=== PATIENT | female | born 1960 | race Caucasian/White ===

== ENCOUNTER 2019-10-02 10:51 | Day surgery (SDC) | payer OTHER ==
[~2019-10-02] VITALS: Ht 167.6 cm; Wt 110.1 kg
[~2019-10-02 10:51] MED LIST: 5-Htp50 MG PO; ASPI81CH PO; CYCL10 PO; FENO160 PO; HYDCHL25 PO; MELA3 PO; OMEGA RED PO; PRAM.125 PO; TRAM50 PO; TRAZ100 PO; VITAMIN D32000 UNIT PO
== END 2019-10-02 15:16 | disposition home or self-care (01) ==
LOC: ORSCSDS 10:51
PROVIDERS: Podiatrist
PROC: 01BG0ZZ Excision of Tibial Nerve, Open Approach (ICD-10-PCS; principal; 2019-10-02 12:30)
PROC: 0QSN04Z Reposition Right Metatarsal with Internal Fixation Device, Open Approach (ICD-10-PCS; principal; 2019-10-02 12:30)
DX: G57.61 Lesion of plantar nerve, right lower limb (principal); M79.671 Pain in right foot; M89.8X7 Other specified disorders of bone, ankle and foot; I10 Essential (primary) hypertension; E66.01 Morbid (severe) obesity due to excess calories; Z68.39 Body mass index [BMI] 39.0-39.9, adult; Z79.899 Other long term (current) drug therapy; Z79.82 Long term (current) use of aspirin
CPT/HCPCS: 88304; C1713; J0690; J2250; J2704; J7120

== ENCOUNTER → 2020-12-06 | Outpatient (CLI) | payer OTHER | LOC: LAB SHORT 13:07 → PLD 13:07 | DX: R93.89 Abnormal findings on diagnostic imaging of other specified body structures (principal); D26.0 Other benign neoplasm of cervix uteri | CPT/HCPCS: 88305 ==

== ENCOUNTER 2021-01-17 09:54 | Day surgery (SDC) | payer OTHER ==
[~2021-01-17] VITALS: Ht 165.1 cm; Wt 112.8 kg
[~2021-01-17 09:54] MED LIST changes: +MELATONIN5 M1 PO
[2021-01-17] MEDS ORDERED: PRAM.125 PO (10:36)
[2021-01-17] MEDS ORDERED: HYDROCHLOROTHIA25 MG PO (10:37)
--- NOTE | 2021-01-17 12:02 | NUR ---
01/17/21 1202 Maria Teresa Spivey NO ANTIBIOTICS ORDERED
--- NOTE | 2021-01-17 13:29 | NUR ---
PT ALERT AND ORIENTED p PROCEDURE. MILD ABD CRAMPING, DECREASED c POSITION CHANGE. GIVEN PO FLUIDS AND SNACKS, DENIES NAUSEA. GIVEN DC INSTRUCTIONS. NO QUESTIONS. VERBALIZES AN UNDERSTANDING. SMALL AMOUNT OF BLOOD ON LEOLA PAD, GIVEN NEW ONE PER REQUEST. IV DC'D, CATH INTACT AND PRESSURE DRESSING APPLIED. OTD IN NAD VIA WC, AWAITING PT, PAPERWORK SIGNED.
== END 2021-01-17 23:00 | disposition home or self-care (01) ==
LOC: ORSCMMR 09:54 → ORD 12:00 → ORSCMMR 12:00
PROVIDERS: Obstetrics & Gynecology
PROC: 0UB98ZX Excision of Uterus, Via Natural or Artificial Opening Endoscopic, Diagnostic (ICD-10-PCS; principal; 2021-01-17 12:00)
PROC: 0UDB8ZX Extraction of Endometrium, Via Natural or Artificial Opening Endoscopic, Diagnostic (ICD-10-PCS; principal; 2021-01-17 12:00)
DX: N95.0 Postmenopausal bleeding (principal); N85.00 Endometrial hyperplasia, unspecified; C54.1 Malignant neoplasm of endometrium; K21.9 Gastro-esophageal reflux disease without esophagitis; E66.01 Morbid (severe) obesity due to excess calories; Z68.41 Body mass index [BMI] 40.0-44.9, adult; Z79.899 Other long term (current) drug therapy; Z87.891 Personal history of nicotine dependence
CPT/HCPCS: 88305; J1100; J1885; J2250; J2370; J2405; J2704; J3010

== ENCOUNTER 2022-05-25 13:34 | Day surgery (SDC) | payer OTHER ==
[~2022-05-25] VITALS: Ht 165.1 cm; Wt 99.8 kg
[~2022-05-25 13:34] MED LIST changes: +DULOXETINE HCL30 MG PO; +HYDROCHLOROTHIA25 MG PO
== END 2022-05-25 16:05 | disposition home or self-care (01) ==
LOC: ORSCSDS 13:34
PROVIDERS: Surgery
PROC: 0DBL8ZX Excision of Transverse Colon, Via Natural or Artificial Opening Endoscopic, Diagnostic (ICD-10-PCS; principal; 2022-05-25 14:45)
DX: R19.4 Change in bowel habit (principal); Z86.010 Personal history of colon polyps; D12.3 Benign neoplasm of transverse colon; J45.909 Unspecified asthma, uncomplicated; F32.A Depression, unspecified; G47.33 Obstructive sleep apnea (adult) (pediatric); E66.01 Morbid (severe) obesity due to excess calories; Z68.36 Body mass index [BMI] 36.0-36.9, adult; I10 Essential (primary) hypertension; F17.210 Nicotine dependence, cigarettes, uncomplicated; Z79.899 Other long term (current) drug therapy
CPT/HCPCS: 88305; J0330; J0461; J2405; J2704; J7120

== ENCOUNTER 2025-06-05 07:49 | Day surgery (SDC) | payer MEDICARE ==
[~2025-06-05] VITALS: Ht 167.6 cm; Wt 98.6 kg
[2025-06-05 11:15] VITALS: BP 125/65
== END 2025-06-05 11:09 | disposition home or self-care (01) ==
LOC: ORSCSDS 07:49
PROVIDERS: Surgery
PROC: 0DBH8ZX Excision of Cecum, Via Natural or Artificial Opening Endoscopic, Diagnostic (ICD-10-PCS; principal; 2025-06-05 09:15)
PROC: 0DBK8ZX Excision of Ascending Colon, Via Natural or Artificial Opening Endoscopic, Diagnostic (ICD-10-PCS; principal; 2025-06-05 09:15)
DX: Z12.11 Encounter for screening for malignant neoplasm of colon (principal); Z86.0101 Personal history of adenomatous and serrated colon polyps; D12.0 Benign neoplasm of cecum; D12.2 Benign neoplasm of ascending colon; F17.210 Nicotine dependence, cigarettes, uncomplicated; Z79.899 Other long term (current) drug therapy; Z85.528 Personal history of other malignant neoplasm of kidney; Z85.828 Personal history of other malignant neoplasm of skin; I10 Essential (primary) hypertension; G47.33 Obstructive sleep apnea (adult) (pediatric); E66.9 Obesity, unspecified; Z68.35 Body mass index [BMI] 35.0-35.9, adult
CPT/HCPCS: 88305; J2704; J7120